=== PATIENT | male | born 1990 | race Caucasian/White ===

== ENCOUNTER 2017-03-16 21:25 | Emergency (ER) | payer OTHER ==
[~2017-03-16] VITALS: Ht 188 cm; Wt 90.7 kg
[2017-03-16 21:32] VITALS: BP 127/88
[2017-03-16] MEDS ORDERED: MUCINEX600 MG PO (21:34)
[2017-03-16] MEDS ORDERED: PREDNISONE 20 M20 M1 PO (21:47)
[2017-03-16] MEDS ORDERED: ZPAK PO (21:47)
== END 2017-03-16 21:56 | disposition home or self-care (01) ==
LOC: M.ERS 21:25
DX: J06.9 Acute upper respiratory infection, unspecified (principal); F17.210 Nicotine dependence, cigarettes, uncomplicated

== ENCOUNTER 2017-07-04 11:32 | Emergency (ER) | payer OTHER ==
[~2017-07-04] VITALS: Ht 188 cm; Wt 90.7 kg
[~2017-07-04 11:32] MED LIST: MUCINEX600 MG PO; PREDNISONE 20 M20 M1 PO; ZPAK PO
[2017-07-04 11:36] VITALS: BP 124/85
[2017-07-04] MEDS ORDERED: NORCO 5-325 TA1 EACH PO (12:02)
[2017-07-04] MEDS ORDERED: PENICILLIN V P500 MG PO (12:02)
== END 2017-07-04 12:15 | disposition home or self-care (01) ==
LOC: M.ERS 11:32
DX: K04.7 Periapical abscess without sinus (principal)

== ENCOUNTER 2017-07-06 10:00 | Emergency (ER) | payer OTHER ==
[~2017-07-06] VITALS: Ht 188 cm; Wt 90.7 kg
[~2017-07-06 10:00] MED LIST changes: +NORCO 5-325 TA1 EACH PO; +PENICILLIN V P500 MG PO
[2017-07-06] MEDS ORDERED: CLEOCIN HCL150 MG PO (10:20)
[2017-07-06] MEDS ORDERED: PERCOCET 5-3251 EACH PO (10:20)
[2017-07-06 10:26] VITALS: BP 124/68
== END 2017-07-06 10:27 | disposition home or self-care (01) ==
LOC: M.ERS 10:00
DX: K04.7 Periapical abscess without sinus (principal); F17.210 Nicotine dependence, cigarettes, uncomplicated

== ENCOUNTER 2017-07-12 19:21 | Emergency (ER) | payer OTHER ==
[~2017-07-12] VITALS: Ht 188 cm; Wt 95.3 kg
[~2017-07-12 19:21] MED LIST changes: +CLEOCIN HCL150 MG PO; +PERCOCET 5-3251 EACH PO
[2017-07-12 19:48] VITALS: BP 135/80
== END 2017-07-12 19:49 | disposition home or self-care (01) ==
LOC: M.ERS 19:21
DX: Z48.00 Encounter for change or removal of nonsurgical wound dressing (principal); F17.210 Nicotine dependence, cigarettes, uncomplicated; Z85.828 Personal history of other malignant neoplasm of skin

== ENCOUNTER 2017-08-05 08:35 | Emergency (ER) | payer OTHER ==
[~2017-08-05] VITALS: Ht 188 cm; Wt 90.7 kg
[2017-08-05] MEDS ORDERED: CLEOCIN HCL150 MG PO (09:46)
[2017-08-05 09:58] VITALS: BP 114/63
== END 2017-08-05 09:59 | disposition home or self-care (01) ==
LOC: M.ERS 08:35
DX: K08.89 Other specified disorders of teeth and supporting structures (principal); F17.210 Nicotine dependence, cigarettes, uncomplicated